=== PATIENT | female | born 1940 | race Caucasian/White ===

== ENCOUNTER 2018-02-24 12:58 | Emergency (ER) | payer MEDICARE, OTHER ==
[2018-02-24 15:17] VITALS: BP 137/78
--- NOTE | 2018-02-24 16:07 | UC ---
Respiratory Complaint HPI - HPI Summary HPI Summary: Pt presents with c/o cough, nasal congestion, ST, fever malaise X 4 days. Pt has been traveling recently to visit terminally ill daughter and states she has not been taking care of herself and let herself get run down due to daughter's illness. - History of Current Complaint Chief Complaint: UCRespiratory Stated Complaint: SORE THROAT, EAR CONCERN Time Seen by Provider: 02/24/18 15:55 Hx Obtained From: Patient ?: No Onset/Duration: Sudden Onset, Lasting Days, Still Present, Worse Since - onest Timing: Constant Severity Initially: Mild Severity Currently: Moderate Pain Intensity: 6 Character: Cough: Nonproductive Aggravating Factors: Deep Breaths, Recumbent Position Alleviating Factors: Nothing Associated Signs And Symptoms: Positive: Fever, Chills, Wheezing, URI, Nasal Congestion - Risk Factors Pulmonary Embolism Risk Factors: Negative Cardiac Risk Factors: Negative Pseudomonas Risk Factors: Negative Tuberculosis Risk Factors: Negative - Allergies/Home Medications Allergies/Adverse Reactions: Allergies Allergy/AdvReac Type Severity Reaction Status Date / Time codeine Allergy Severe Vomiting Verified 02/24/18 15:08 Home Medications: Home Medications Benzocaine/Menthol ADEN* [Chloraseptic ADEN*] 1 aden MT Q2H PRN 02/24/18 [History Confirmed 02/24/18] Ibuprofen TAB* [Motrin TAB* 400 MG] 400 mg PO Q4H PRN 02/24/18 [History Confirmed 02/24/18] Levothyroxine TAB* [Synthroid 125 MCG TAB*] 125 mcg PO DAILY 02/24/18 [History Confirmed 02/24/18] Pravastatin Sodium 40 mg PO QPM 02/24/18 [History Confirmed 02/24/18] hydroCHLOROthiazide [Hydrochlorothiazide] 12.5 mg PO DAILY 02/24/18 [History Confirmed 02/24/18] PMH/Surg Hx/FS Hx/Imm Hx Previously Healthy: Yes - Surgical History Surgical History: Yes Surgery Procedure, Year, and Place: Right knee with metal 09/2015 - Family History Known Family History: Positive: Cardiac Disease - Social History Occupation: Retired Lives: With Family Alcohol Use: None Substance Use Type: None Smoking Status (MU): Never Smoked Tobacco Have You Smoked in the Last Year: No Review of Systems All Other Systems Reviewed And Are Negative: Yes Constitutional: Positive: Fever, Chills, Fatigue Skin: Positive: Negative Eyes: Positive: Negative ENT: Positive: Sore Throat, Sinus Congestion Respiratory: Positive: Cough Cardiovascular: Positive: Negative Gastrointestinal: Positive: Negative Genitourinary: Positive: Negative Motor: Positive: Negative Neurovascular: Positive: Negative Musculoskeletal: Positive: Negative Neurological: Positive: Negative Psychological: Positive: Negative Is Patient Immunocompromised?: No Physical Exam Triage Information Reviewed: Yes Appearance: Ill-Appearing Vital Signs: Initial Vital Signs Temp 98.6 F 02/24/18 15:13 Pulse 87 02/24/18 15:13 Resp 28 02/24/18 15:13 BP 137/78 02/24/18 15:13 Pulse Ox 100 02/24/18 15:13 Vital Signs Reviewed: Yes Eye Exam: Normal ENT: Positive: Nasal congestion Dental Exam: Normal Neck exam: Normal Respiratory: Positive: Wheezing Cardiovascular Exam: Normal Musculoskeletal Exam: Normal Neurological Exam: Normal Psychological Exam: Normal Skin Exam: Normal UC Diagnostic Evaluation - Laboratory O2 Sat by Pulse Oximetry: 100 Respiratory Course/Dx - Differential Dx/Diagnosis Differential Diagnosis/HQI/PQRI: Bronchitis, Influenza, Laryngitis, Sinusitis Provider Diagnosis: Pneumonia Discharge - Sign-Out/Discharge Documenting (check all that apply): Patient Departure All imaging exams completed and their final reports reviewed: No Studies - Discharge Plan Condition: Stable Disposition: HOME Prescriptions: Amoxicillin PO (*) [Amoxicillin 875 MG (*)] 875 mg PO Q12H #20 tab Benzonatate CAP* [Tessalon 100 MG CAP*] 200 mg PO Q8H PRN #30 cap PRN Reason: Cough Patient Education Materials: Pharyngitis (ED), Pneumonia (ED) Referrals: Hilda Zavaleta MD [Primary Care Provider] - As Soon As Possible - Billing Disposition and Condition Condition: STABLE Disposition: Home
== END 2018-02-24 16:15 | disposition home or self-care (01) ==
LOC: UCCORT 12:58
DX: J18.9 Pneumonia, unspecified organism (principal); Z88.5 Allergy status to narcotic agent
CPT/HCPCS: 99212; G0463